=== PATIENT | female | born 1965 | race Caucasian/White ===

== ENCOUNTER → 2018-08-08 | Outpatient (CLI) | payer OTHER ==
[~2018-08-08] MED LIST: CEPH500 PO; IBUP800 PO; OXYACE5T PO
== END ==
LOC: LAB SHORT 13:18 → PLD 13:18
DX: R87.810 Cervical high risk human papillomavirus (HPV) DNA test positive (principal)
CPT/HCPCS: 88305

== ENCOUNTER → 2021-10-18 | Outpatient (CLI) | payer OTHER | END | disposition home or self-care (01) | LOC: LAB SHORT 10:23 | DX: R87.810 Cervical high risk human papillomavirus (HPV) DNA test positive (principal); N72 Inflammatory disease of cervix uteri | CPT/HCPCS: 88305 ==